=== PATIENT | male | born 1945 | race Two or more races ===

== ENCOUNTER 2018-11-02 10:39 | Day surgery (SDC) | payer OTHER ==
[~2018-11-02 10:39] MED LIST: CANNABIS PO; CLONAZEPAM2 MG PO; GABAPENTIN600 MG PO; GLUCOSAMINE CH1 EACH PO; HYOSCYAMINE0.125 M1 SL; INTESTINEX680 MG PO; LACTULOSE20 GM/30 M PO; OXYC1TAB9 PO; SIMVASTATIN10 MG PO
== END 2018-11-02 18:30 | disposition home or self-care (01) ==
LOC: AMB-ENDOS 10:39
DX: D13.1 Benign neoplasm of stomach (principal); K63.5 Polyp of colon

== ENCOUNTER 2022-02-22 06:55 | Day surgery (SDC) | payer OTHER | END 2022-02-22 11:40 | disposition home or self-care (01) | LOC: AMB-ENDOS 06:55 | PROVIDERS: ATTEND Colon & Rectal Surgery | DX: C20 Malignant neoplasm of rectum (principal); Z86.010 Personal history of colon polyps; K62.89 Other specified diseases of anus and rectum; Z20.822 Contact with and (suspected) exposure to COVID-19; Z93.3 Colostomy status; K29.00 Acute gastritis without bleeding; K21.9 Gastro-esophageal reflux disease without esophagitis; E78.5 Hyperlipidemia, unspecified ==

== ENCOUNTER 2022-11-29 12:23 | Emergency (ER) | payer OTHER ==
[~2022-11-29] VITALS: Ht 167.6 cm; Wt 81.6 kg
[2022-11-29] MEDS ORDERED: STIOLTO RESPIMAT4 GM IH (12:35)
[2022-11-29] MEDS ORDERED: REMERON15 M1 PO (12:36)
== END 2022-11-29 18:40 | disposition home or self-care (01) ==
LOC: ER 12:23
DX: K94.01 Colostomy hemorrhage (principal); Z88.8 Allergy status to other drugs, medicaments and biological substances

== ENCOUNTER 2024-12-04 07:24 | Day surgery (SDC) | payer OTHER ==
[~2024-12-04 07:24] MED LIST changes: +REMERON15 M1 PO; +STIOLTO RESPIMAT4 GM IH
[2024-12-04] MEDS ORDERED: DIPHENHYDRAMINE HCL 50 MG/ML VIAL 1ML IV ONE (10:00)
[2024-12-04] MEDS ORDERED: MIDAZOLAM HCL 2 MG/2 ML VIAL IV ONE (10:00)
[2024-12-04] MEDS ORDERED: fentaNYL CITRATE 50 MCG/ML AMPUL IV PUSH ONE (10:00)
== END 2024-12-04 11:10 | disposition home or self-care (01) ==
LOC: AMB-ENDOS 07:24
PROVIDERS: ATTEND Colon & Rectal Surgery
DX: K52.89 Other specified noninfective gastroenteritis and colitis (principal); Z86.0100 Personal history of colon polyps, unspecified; Z93.3 Colostomy status; K92.1 Melena; C20 Malignant neoplasm of rectum; Z88.8 Allergy status to other drugs, medicaments and biological substances